=== PATIENT | female | born 1980 | race Hispanic/Latino ===

== ENCOUNTER 2021-01-25 13:29 | Emergency (ER) | payer BC, OTHER ==
[~2021-01-25] VITALS: Ht 170.2 cm; Wt 156.9 kg
== END 2021-01-25 14:09 | disposition home or self-care (01) ==
LOC: EDH 13:40
DX: Z48.89 Encounter for other specified surgical aftercare (principal); E11.9 Type 2 diabetes mellitus without complications; I10 Essential (primary) hypertension; F41.9 Anxiety disorder, unspecified; F32.9 Major depressive disorder, single episode, unspecified; E66.9 Obesity, unspecified; Z68.43 Body mass index [BMI] 50.0-59.9, adult
CPT/HCPCS: 99281